=== PATIENT | male | born 1980 | race Caucasian/White ===

== ENCOUNTER 2020-12-28 08:30 | Outpatient (CLI) | payer OTHER, SELFPAY ==
--- NOTE | ~2020-12-28 | CT_ITS ---
EXAMINATION: CT abdomen pelvis w con DATE: 12/28/2020 09:08 INDICATION: Abdominal pain TECHNIQUE: Computed tomography (CT) of the abdomen and pelvis was performed with 100 cc Omnipaque 350 intravenous contrast. The dose-length product was 1572.69 mGy-cm. Automated exposure control and ite rative reconstruction technique were employed. COMPARISON: No prior studies for comparison. FINDINGS: There is lingular atelectasis. Heart size normal. No significant pleural or pericardial eff usion. There is fatty infiltration of the liver. The spleen, pancreas, adrenal glands and kidneys are unremarkable. Colonic diverticulosis without evidence for diverticulitis. Normal appendix. Nonobstru ctive bowel gas pattern. No abnormal pelvic masses or fluid collections. Few colonic diverticula with out evidence for acute diverticulitis. No free air or free fluid. There is moderate lower lumbar spon dylosis. IMPRESSION: 1. No acute abdominal abnormality. Reviewed, dictated and finalized at location B.
== END 2020-12-28 08:31 | disposition home or self-care (01) ==
PROVIDERS: PCP Family Medicine; Visit Provider Physician Assistant
DX: R10.9 Unspecified abdominal pain (principal)
CPT/HCPCS: 74177; Q9967

== ENCOUNTER 2023-02-11 15:18 | Outpatient (CLI) | payer OTHER, SELFPAY ==
--- NOTE | ~2023-02-11 | XR_ITS ---
EXAMINATION: XR chest 2V 02/11/2023 15:47 INDICATION: Chest pain for 2 weeks. Hypertension. PROCEDURE: 2 view chest COMPARISON: 07/11/2017 FINDINGS: The lungs are clear. The cardiomediastinal silhouette is within normal limits. There are no pleural effusions. There is no pneumothorax suspected. IMPRESSION: 1: NO ACUTE CARDIOPULMONARY DISEASE. Reviewed, dictated and finalized at location A.
--- NOTE | 2023-02-11 15:45 | ECG_ITS ---
Measurements Intervals [place] Rate: 75 P: 23 ID: 139 QRS: 44 QRSD: 105 T: 4 QT: 372 QTc: 418 Interpretive Statements SINUS RHYTHM WITH SINUS ARRHYTHMIA INCOMPLETE RIGHT BUNDLE BRANCH BLOCK BORDERLINE ECG NO PREVIOUS ECG AVAILABLE FOR COMPARISON Electronically Signed On 02-11-2023 20:03:32 CDT by Juan David Heard D.O.
== END 2023-02-11 15:19 | disposition home or self-care (01) ==
PROVIDERS: PCP Family Medicine; Visit Provider Physician Assistant Medical
DX: R07.89 Other chest pain (principal); I45.10 Unspecified right bundle-branch block
CPT/HCPCS: 71046; 93005

== ENCOUNTER 2024-06-09 10:12 | Emergency (ER) | payer OTHER, SELFPAY ==
[2024-06-09] VITALS (22 sets, daily range): BP systolic 108–143; BP diastolic 79–95; PULSE 83–127; RESP 18; TEMP 36.6; O2SAT 98–100
--- NOTE | ~2024-06-09 | XR_ITS ---
EXAMINATION: XR chest 2V DATE: 06/09/2024 10:59 INDICATION: Tachycardia. Abdominal pain. Nausea. TECHNIQUE: PA and lateral views of the chest were obtained. COMPARISON: Chest radiograph dated 02/11/2023 FINDINGS: The lungs remain clear with no focal airspace opacities, pulmonary edema, pleural effusion or pneumot horax. The cardiomediastinal silhouette is normal. Mild to moderate thoracic spondylosis. Postoperati ve change noted left upper quadrant. IMPRESSION: 1. No acute cardiopulmonary disease. Reviewed, dictated and finalized at location B. R BASTER
--- NOTE | ~2024-06-09 | CT_ITS ---
CLINICAL INDICATION: Tachycardia, nausea vomiting and diarrhea, and abdominal pain COMPARISON: 12/28/2020. TECHNIQUE: An enhanced CT of the chest, abdomen and pelvis was performed utilizing multislice spiral technique reconstructed at 2.5 mm slice thickness. Coronal and sagittal reconstructions were perform ed. This CT examination was performed utilizing dose reduction techniques. DLP: 1425 mGy-cm FINDINGS/OBSERVATIONS: Lung: The lungs are clear. The heart is of normal size, without pericardial effusion. Mediastinum: No pathologically enlarged or morphologically suspicious lymph nodes are identified within the spinal , bilateral axilla, within the soft tissues of the anterior chest wall. Soft tissues of the chest: Unremarkable. Bones of the chest: No acute fracture. No lytic or blastic lesions are identified. Liver: The liver enhances homogeneously and is not enlarged measuring 18 cm in longitudinal dimension. Gallbladder and biliary system: The gallbladder is distended, but otherwise unremarkable. Pancreas: The pancreas enhances homogeneously, without ductal dilatation. Spleen: The spleen enhances homogeneously, and is borderline enlarged measuring 13 cm in longitudinal dimensi on. Kidneys: The bilateral kidneys enhance symmetrically without hydronephrosis or renal calculi. Adrenal glands: Unremarkable. Gastrointestinal tract: Small hiatal hernia is present. Mural thickening with multiple diverticula in the rectosigmoid colon and surrounding inflammatory kori nge, findings consistent with acute/early diverticulitis which clinical correlation is needed. No drainable fluid collection. No gross free air. Appendix: The air-filled appendix is of normal caliber (axial series, images 174 through 193). Vasculature: No calcified atherosclerotic disease is present. No aneurysmal dilatation. Lymph nodes: Scattered nonpathologically enlarged lymph nodes within the root of the mesentery and deep in the pel vis. Pelvic structures: The bladder is minimally distended and otherwise unremarkable. Body wall and musculoskeletal: Small fat-containing umbilical hernia. Degenerative disease within the lower lumbar spine, with osteophyte formation, disc space narrowing, endplate changes and vacuum phenomena. This is most prominent at the levels of L4/L5 and L5/S1. IMPRESSION: Rectosigmoid diverticulitis without a drainable fluid collection or gross perforation. Reviewed, dictated and finalized at location A. STRIAL MANUFACTURING TECHNICIAN IMPRESSION: Rectosigmoid diverticulitis without a drainable fluid collection or gross perfo ration.
--- NOTE | 2024-06-09 10:36 | ECG_ITS ---
Test Date: 2024-06-09 10:48:12 Measurements Intervals [place] Rate: 108 P: 20 VT: 148 QRS: 93 QRSD: 91 T: 11 QT: 318 QTc: 428 Interpretive Statements SINUS TACHYCARDIA INCOMPLETE RIGHT BUNDLE BRANCH BLOCK BORDERLINE ST-T WAVE ABNORMALITY- INFERIOR LEADS BASELINE ARTIFACT- I, III, AVL ABNORMAL ECG No previous ECG available for comparison Electronically Signed On 06-09-2024 11:33:11 VENEER TAPING MACHINE OFFBEARER by Juan David Heard D.O.
--- NOTE | 2024-06-09 10:36 | ED_ITS ---
HPI - Abdominal Pain General Chief Complaint: Abdominal Pain Stated Complaint: GI sx since 06/04 Time Seen by Provider: 06/09/24 10:26 History of Present Illness HPI narrative: Patient is a 44-year-old male who presents to the ER with complaints of abdominal pain that has been going on for the past 5 days. He reports he takes Zepbound 1.5 for weight loss. Patient reports he recently increased his dose but has been on this medication for over 6 months. He reports on Friday he started experiencing bloating, diarrhea, and cramping. Patient reports a history anxiety and hypertension. He reports he takes his antihypertensive medication every day. Patient denies recent fevers, shortness of breath, or constipation. Related Data Allergies Allergy/AdvReac Type Severity Reaction Status Date / Time No Known Allergies Allergy Verified 02/23/24 16:34 Review of Systems Review of Systems: All systems reviewed & are unremarkable except as noted in HPI and below PMFSH Past Medical History Medical History Anxiety Gastroesophageal reflux disease Hip instability Hip pain, left Left ear impacted cerumen Family History Family History Grandparent Hypertension Mother Patient's mother is in good health Father Patient's father is in good health Sibling Patient's sister is in good health Patient's brother is in good health Social History Social History Smoking status: Never smoker Second hand tobacco smoke exposure: No Alcohol intake: current Drinks per week: 12 Substance use: never Substance use type: does not use Lack of Transportation: No Lack of Food: Never True Current Housing: I Have Housing Concerned About Future Housing: No Difficulty Paying Gas/Electric Bills: No Difficulty Paying for Meds: No Currently Unemployed: No Education: Bachelor's Degree Difficulty w/ Childcare or Family Care: No Living arrangements: with family Occupation/Education: occupation Gender identity (if verbalized by the patient): Male Sexual Orientation (if Verbalized by the Patient): Straight or Heterosexual Spiritual care concerns: No Agree to blood products: Yes Exam Narrative: GENERAL: Well appearing, well-nourished, non-toxic, in no acute distress. HEAD: Normocephalic, atraumatic. NECK: Supple. No adenopathy, no masses. RESPIRATORY: Airway patent, respirations nonlabored. Clear to auscultation bilaterally, no rales, rhonchi, wheezing. CARDIOVASCULAR: Tachycardia and rhythm without murmurs, rubs, or gallops. Peripheral pulses 2+ and equal bilaterally. ABDOMINAL: Soft, nontender, distended, no hepatosplenomegaly. Normoactive BS. MUSCULOSKELETAL: Moves all extremities. Strength/ROM intact without gross deformities. SKIN: Warm, dry, normal color. No rashes. NEURO: A&O X3. Speech clear. Cranial nerves II-XII grossly intact. No ataxic movements. PSYCHIATRIC: Appropriate mood and affect. Normal interaction. Course Vital Signs Vital signs: Vital Signs Temperature 36.6 C 06/09/24 10:16 Pulse Rate 127 H 06/09/24 10:16 Respiratory Rate 18 06/09/24 10:16 Blood Pressure 130/88 06/09/24 10:16 Pulse Oximetry 99 06/09/24 10:16 Oxygen Delivery Room Air 06/09/24 10:16 Temperature 36.6 C 06/09/24 10:16 Pulse Rate 83 06/09/24 14:03 Respiratory Rate 18 06/09/24 14:03 Blood Pressure 143/79 H 06/09/24 14:03 Pulse Oximetry 100 06/09/24 14:03 Oxygen Delivery Room Air 06/09/24 10:16 MDM - Abdominal Pain MDM Narrative Medical decision making narrative: Patient is a 44-year-old male who presents to the ER with complaints of abdominal pain that has been going on for the past 5 days. He reports he takes Zepbound 1.5 for weight loss. Patient reports he recently increased his dose but has been on this medication for over 6 months. He reports on Friday he started experiencing bloating, diarrhea, and cramping. Patient reports a hist ory anxiety and hypertension. He reports he takes his antihypertensive medication every day. Patient denies recent fevers, shortness of breath, or constipation. Labs Ordered: CBC, CMP, PTT, INR, troponin, lactic acid, urinalysis Imaging Ordered: EKG, chest x-ray Results: CT scan showed Small hiatal hernia is present. Mural thickening with multiple diverticula in the rectosigmoid colon and surrounding inflammatory change, findings consistent with acute/early diverticulitis which clinical correlation is needed. No drainable fluid collection. No gross free air. CBC indicates a WBC of 11.2. CMP and lipase are unremarkable. Urinalysis indicates 2+ ketones. After 2L NS IV bolus pt's heart rate has returned to the 80s with NSR. Diagnosis: Diverticulitis Consults: Pt should follow-up with his PCP in one week. Pt should also follow-up with gastroenterology after infection has resolved. Disposition/Plan: Pt does not meet criteria for hospital admission, but will be given first doses of IV antibiotics in the ER. Pt will be started on oral antibiotics outpatient. He endorses very little discomfort other than bloating and cramping. Pt should follow-up with his PCP next week and was advised to maintain a liquid diet for one week per Up-to-date recommendations. Pt and his verbalize understanding and are in agreement with plan. Differential Diagnosis Differential diagnosis: Likely abdominal pain, acute appendicitis, constipation, diverticulitis, gastroenteritis, pancreatitis and small bowel obstruction Lab Data Attestation: I reviewed the patient's lab results. 06/09/24 10:29 06/09/24 10:29 Labs: Lab Results 06/09/24 06/09/24 Range/Units 10:29 11:21 WBC 11.2 H (4.5-10.0) K/mm3 RBC 5.34 (4.6-6.20) M/mm3 Hgb 16.2 (14.0-18.0) g/dL Hct 46.1 (42.0-52.0) % MCV 86.3 (80-100) fl MCH 30.3 (26-34) pg MCHC 35.1 (32-36) g/dl RDW 12.6 (11.5-14.5) % Plt Count 290 (150-375) k/mm3 MPV 9.5 (7.4-10.4) fl Immature Gran % (Auto) 0.2 (0-0.5) % Neut % (Auto) 69.7 (45.5-73.1) % Lymph % (Auto) 17.6 L (18.3-44.2) % [place] % (Auto) 6.9 (2.6-8.5) % Eos % (Auto) 5.2 H (0-4.4) % Baso % (Auto) 0.4 (0.2-1.2) % Lymph # (Auto) 1.98 (0.9-3.2) K/mm3 [place] # (Auto) 0.8 H (0.1-0.6) K/mm3 Eos # (Auto) 0.6 H (0-0.3) K/mm3 Baso # (Auto) 0.0 (0.0-0.1) K/mm3 Abs Immat Gran (auto) 0.02 (0.00-0.031) K/mm3 Absolute Neuts (auto) 7.8 H (1.3-6.7) K/mm3 Absolute Nucleated RBC 0.000 (0.0-0.012) K/mm3 Nucleated RBC % 0.0 (0.0-0.2) % PT 14.5 (11.1-14.7) Seconds INR 1.1 APTT 33.6 (22.3-36.8) Seconds Sodium 138 (137-145) mmol/L Potassium 4.0 (3.4-5.0) mmol/L Chloride 105 (98-107) mmol/L Carbon Dioxide 25 (22-30) mmol/L Anion Gap 8 (4-12) mmol/L BUN 16 (9-20) mg/dL Creatinine 0.90 (0.7-1.3) mg/dL Estim Creat Clear Calc 107 ml/min Estimated GFR > 60 (59 - ) Glucose 105 (65-110) mg/dL Lactic Acid Pending Calcium 8.7 (8.4-10.2) mg/dL Total Bilirubin 0.8 (0.2-1.3) mg/dL AST 22 (17-59) U/L ALT 21 (6-50) U/L Alkaline Phosphatase 122 (38-126) U/L Troponin I < 0.012 (0.000-0.034) ng/mL Total Protein 8.0 (6.3-8.2) g/dL Albumin 4.5 (3.5-5.1) g/dL Lipase 61 (23-300) U/L Urine Color Yellow (Yellow) Urine Appearance Clear (Clear) Urine pH 5.5 (5.0-9.0) Ur Specific [place] 1.027 (1.001-1.035) Urine Protein Trace (Negative) mg/dL Urine Glucose (UA) Negative (Negative) mg/dL Urine Ketones 2+ H (Negative) mg/dL Ur Blood (Man) Negative (Negative) Urine Nitrate Negative (Negative) Urine Bilirubin Negative (Negative) Urine Urobilinogen 1.0 (<2.0) mg/dL Add Ur Microanalysis Reviewed Leukocyte Esterase Rfl Negative (Negative) ISELA/UL Urine RBC 0-2 (0-2) /hpf Urine WBC 0-5 (0-3) /hpf Ur Squamous Epith Cells None seen (Few) /hpf Urine Bacteria None seen /hpf Urine Casts 6-10 Influenza A (RT-PCR) Negative (Negative) Influenza B (RT-PCR) Negative (Negative) RSV (RT-PCR) Negative (Negative) SARS-CoV-2 RNA (RT-PCR) Negative (Negative) Imaging Data Attestation: I personally reviewed and interpreted this imaging study as follows: Radiologist's impression: ITS Impressions Chest X-Ray 06/09/24 11:04 IMPRESSION: 1. No acute cardiopulmonary disease. Chest/Abdomen/Pelvis CT 06/09/24 12:27 IMPRESSION: Rectosigmoid diverticulitis without a drainable fluid collection or gross perforation. Discharge Plan Discharge Clinical Impression: Diverticulitis Patient Disposition: Home, Self-Care Condition: Stable Instructions: Antibiotic Form, Diverticulitis (ED), Abdominal Pain (ED) Additional Instructions: Please take all medications as prescribed. Follow-up with your primary care provider in one week or less. Return to the ER with any worsening symptoms, including severe abdominal pain. Prescriptions: New amoxicillin-pot clavulanate 875-125 mg tablet 1 tablet PO Q12H Qty: 20 0RF No Action pantoprazole [Protonix] 40 mg tablet,delayed release (DR/EC) 40 mg PO QAM Qty: 30 11RF buspirone 5 mg tablet See Rx Instructions .ROUTE .COMPLEX Qty: 60 3RF Dose Instruction: TAKE 1 TABLET BY MOUTH TWICE DAILY Rx Instructions: TAKE 1 TABLET BY MOUTH TWICE DAILY triamcinolone acetonide 0.1 % cream 1 applic TOPICAL TID Qty: 30 0RF irbesartan 75 mg tablet See Rx Instructions .ROUTE .COMPLEX Qty: 90 3RF Dose Instruction: TAKE 1 TABLET DAILY Rx Instructions: TAKE 1 TABLET DAILY metoprolol succinate 50 mg tablet extended release 24 hr See Rx Instructions .ROUTE .COMPLEX Qty: 90 3RF Dose Instruction: TAKE 1 TABLET DAILY Rx Instructions: TAKE 1 TABLET DAILY Zepbound 15 mg/0.5 mL pen injector 15 mg subcut WEEKLY Qty: 2 0RF Follow-up/Referrals: Bibiana Coello MD [Primary Care Provider] -
[2024-06-09 10:45] LABS: Basophils Percent Auto 0.4 % (0.2-1.2); Eosinophils Absolute Auto 0.6 K/mm3 (0-0.3); Eosinophils Percent Auto 5.2 % (0-4.4); Hematocrit 46.1 % (42.0-52.0); Hemoglobin 16.2 g/dL (14.0-18.0); Immature Granulocyte Absolute 0.02 K/mm3 (0.00-0.031); Immature Granulocyte Percent A 0.2 % (0-0.5); Lymphocytes Absolute Auto 1.98 K/mm3 (0.9-3.2); Lymphocytes Percent Auto 17.6 % (18.3-44.2); Mean Corpuscular HGB Conc 35.1 g/dl (32-36); Mean Corpuscular Hemoglobin 30.3 pg (26-34); Mean Corpuscular Volume 86.3 fl (80-100); Mean Platelet Volume 9.5 fl (7.4-10.4); Monocytes Absolute Auto 0.8 K/mm3 (0.1-0.6); Monocytes Percent Auto 6.9 % (2.6-8.5); Neutrophils Absolute Auto 7.8 K/mm3 (1.3-6.7); Neutrophils Percent Auto 69.7 % (45.5-73.1); Platelet Count Result 290 k/mm3 (150-375); Red Blood Count 5.34 M/mm3 (4.6-6.20); Red Cell Distribution Width 12.6 % (11.5-14.5); White Blood Count 11.2 K/mm3 (4.5-10.0)
[2024-06-09 10:53] LABS: Alanine Aminotransferase 21 U/L (6-50); Albumin Level 4.5 g/dL (3.5-5.1); Alkaline Phosphatase 122 U/L (38-126); Anion Gap 8 mmol/L (4-12); Aspartate Amino Transferase 22 U/L (17-59); Bilirubin,Total 0.8 mg/dL (0.2-1.3); Blood Urea Nitrogen 16 mg/dL (9-20); Calcium 8.7 mg/dL (8.4-10.2); Carbon Dioxide 25 mmol/L (22-30); Chloride 105 mmol/L (98-107); Estimated CRCL calculation 107 ml/min; Estimated Glomerular Filt Rate > 60; Glucose 105 mg/dL (65-110); Lipase 61 U/L (23-300); Sodium 138 mmol/L (137-145)
[2024-06-09] MEDS: FAMOTIDINE 20 MG/2 ML VIAL IV PUSH (11:00)
[2024-06-09] MEDS: SODIUM CHLORIDE 0.9% IV 1,000 ML 999 ML IV CONT ×2 (11:00)
[2024-06-09] MEDS: PANTOPRAZOLE SODIUM IV 40 MG VIAL IV PUSH (11:00)
[2024-06-09 11:08] LABS: INR 1.1; Prothrombin Time 14.5 Seconds (11.1-14.7)
[2024-06-09 11:09] LABS: Partial Thromboplastin Time 33.6 Seconds (22.3-36.8)
[2024-06-09 11:10] LABS: Add Urine Microscopic? YES; Appearance Urine Clear (Clear); Bacteria Urine None Seen /hpf; Bilirubin Urine Negative (Negative); Blood Urine Negative (Negative); Color Urine Yellow (Yellow); Glucose Urine UA Negative (Negative); Ketones Urine 2+ mg/dL (Negative); Leukocyte Esterase Ur Negative LEU/UL (Negative); Need Manual Microscopic Reviewed; Nitrate Urine Negative (Negative); Protein Urine Trace mg/dL (Negative); RBC Urine 0-2 /hpf (0-2); Specific Grav Ur 1.027 (1.001-1.035); Squamous Epithelial Cell Urine None Seen /hpf (Few); WBC Urine 0-5 /hpf (0-3); pH Urine 5.5 (5.0-9.0)
[2024-06-09 11:22] LABS: Troponin I < 0.012 ng/mL (0.000-0.034)
[2024-06-09 12:09] LABS: Influenza A QL RT-PCR Negative (Negative); Influenza B QL RT-PCR Negative (Negative); RSV RNA, RT-PCR Negative (Negative); SARS-CoV-2 RNA PCR Negative (Negative)
[2024-06-09] MEDS: metroNIDAZOLE 500 MG/ISO 100ML 500 MG/100 ML BAG 100 MG IVPB (14:26)
[2024-06-09 14:36] LABS: Lactic Acid Reflex < 0.5 mmol/L (0.7-2.0)
== END 2024-06-09 15:38 | disposition home or self-care (01) ==
PROVIDERS: Emergency Medicine; Emergency Provider Registered Nurse; PCP Family Medicine
DX: K57.32 Diverticulitis of large intestine without perforation or abscess without bleeding (principal); Z20.822 Contact with and (suspected) exposure to COVID-19; F41.9 Anxiety disorder, unspecified; K21.9 Gastro-esophageal reflux disease without esophagitis; R94.31 Abnormal electrocardiogram [ECG] [EKG]
CPT/HCPCS: 36415; 71046; 71260; 74177; 80053; 81001; 83605; 83690; 84484; 85025; 85610; 85730; 87040; 87637; 93005; 96361; 96365; 96367; 96375; 99284; J0696; J1836; J2470; J7030; Q9967

== ENCOUNTER 2025-04-11 10:35 | Day surgery (SDC) | payer OTHER, SELFPAY ==
[2025-03-14 15:33] VITALS: BMI 29.1
[2025-03-31 09:41] VITALS: BMI 27.7
[2025-04-11 11:05] VITALS: BP 119/84; PULSE 86; RESP 16; TEMP 36.5; O2SAT 100
[2025-04-11] MEDS: LACTATED RINGERS 1,000 ML 150 ML IV CONT (11:08)
--- OUTSIDE RECORDS SUMMARY | 2025-04-11 12:05 | XMS_ITS | Clinical Summary ---
Author Organization [facility] Address [address] [place] [id number] Care Team Providers Care Marketing Representative Name Role Phone Unavailable Primary Care Provider Unavailabl e Social History Tobacco Use Types Packs/Day Years Used Date Smoking Tobacco: Never Assessed Sex and Gender Information Value Date Recorded Sex Assigned at Not on file Legal Sex Male 7:54 PM CDT Gender Identity Not on file Sexual Orientation Not on file Plan of Treatment Health Maintenance Due Date Last Done Comments Colorectal Cancer Screening Colonoscopy (10 Years) 1980 Annual Physical 02/28/1983 Hepatitis C 02/28/1998 DTaP, Tdap and Td Vaccines ( 1 - Tdap) 02/28/1999 Hepatitis B Vaccines (1 of 3 - 19+ 3-dose series) 02/28/1999 HPV Vaccines (1 - 3-dose SCD M series) 02/28/2007 COVID-19 Vaccine (2023-2 5 season) 2025 Meningococcal B Vaccine Aged Out No l onger eligible based on patient's age to complete this topic Meningococcal Vaccine Aged Out No bruno maria luz eligible based on patient's age to complete this topic Pneumococcal Vaccine: Pediat rics (0 to 5 Years) and At-Risk Patients (6 to 49 Years) Aged Out No longer eligible b ased on patient's age to complete this topic RSV Immunizations Under 20 Months Aged Out No longer eligible based on patient's age to complete this topic
--- OUTSIDE RECORDS SUMMARY | 2025-04-11 12:05 | XMS_ITS | Clinical Summary ---
Author Organization [facility] Address [address] [place] [address] Care Team Providers Care Machine Maintenance Technician Name Role Phone Bibiana Coello MD Primary Care Provider [phone] Source Comments [facility],non-owned Affiliates and Associated Physician Practices is amultiple site organization consisting of ambulatory clinics and hospital sitesin [place], [place], [place] and [place]. This disclosure is being madepursuant to the Care Everywhere program and may not contain all information available regarding this patient. Last updated 18.[facility] Allergies No known active allergies Medications * Be aware that medications may not be up to date on this document. Alwaysverify current medications with the patient. 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 Gender Identity Not on file Sexual Orientation Not on file Last Filed Vital Signs Vital Sign Reading Time Taken Comments Blood Pressure 119/75 11/07/2016 6:20 PM CDT Pulse 78 11/07/2016 6:20 PM CDT Temperature 36.6 C (97.9 F) 11/07/2016 6:20 PM CDT Respiratory Rate 16 11/07/2016 6:20 PM CDT Oxygen Saturation - - Inhaled Oxygen Concentration - - Weight 113.4 kg (250 lb) 11/07/2016 6:20 PM CDT Height 188 cm (6' 2) 11/07/2016 6:20 PM CDT Body Mass Index 32.1 11/07/2016 6:20 PM CDT Plan of Treatment Health Maintenance Due Date Last Done Comments COLOGUARD (AGES 45-75) - COL ON CA SCREENING 1980 COLON MONITORING 1980 COLONOSCOPY - COLON CA SCREENING 1980 CT COLONOGRAPHY - COLON CA SCREENING 1980 Colorectal Cancer Screening 1980 FIT - COLON CA SCREENING 1980 FLEX SIG - COLON CA SCREENING 1980 LIPID TESTING 1980 HIV SCREENING 02/28/1995 HEPATITIS C SCREENING 02/24/1998 DTAP/TDAP/TD VACCINES (1 - Tdap) 02/28/1999 HEPATITIS B VACCINE (1 of 3 - 19+ 3-dose series) 02/28/1999 HPV VACCINE (1 - 3-dose SCDM series) 02/28/2007 DEPRESSION SCREENING 07/21/2024 COVID-19 VACCINE (1 - 2023-2 5 season) 2025 INFLUENZA VACCINE (#1) 2025 ZOSTER VACCINE (1 of 2) 02/28/2030 HIB VACCINE Aged Out No longer eligi ble based on patient's age to complete this topic MENINGOCOCCAL (Group B) VACC INE SHARED DECISION-MAKING Aged Out No longer eligibl e based on patient's age to complete this topic MENINGOCOCCAL GROUPS A/C/Y/W VACCINE Aged Out No longer eligible b ased on patient's age to complete this topic PNEUMOCOCCAL VACCINE Aged Out No long er eligible based on patient's age to complete this topic Insurance FELICIA Care Teams Machine Maintenance Technician Relationship Specialty Start Date End Date Bibiana Coello MD [address] [place] [address] PCP - General Family Medicine 11/07/16
--- OUTSIDE RECORDS SUMMARY | 2025-04-11 12:05 | XMS_ITS | Clinical Summary ---
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 Gender Identity Not on file Sexual Orientation Not on file Plan of Treatment Health Maintenance Due Date Last Done Comments Hepatitis C Virus (HCV) Screening 1980 TdaP Immunization 1980 Hepatitis B Immunization (1 of 3 - 19+ 3-dose series) 02/28/1999 Human Papillomavirus (HPV) Immunization (1 - 3-dose SCDM series) 02/28/2007 Cologuard 02/28/2025 Colonoscopy 02/28/2025 Colorectal Cancer Screening 02/28/2025 Immunochemical Fecal Occult Blood 02/28/2025 Influenza Immunization (#1) 2025 SARS-COV-2 Immunization ( season) 2025 06/21/2021 Respiratory Syncytial Virus (RSV) Immunization (Adult) (1 - 1-dose 75+ series) 02/28/2055 Meningococcal Immunization (ACWY) Aged Out No longer eligible based on patient's age to complete this topic Pneumococcal Immunization Combined Aged Out No longer eligible based on patient's age to complete this topic Rotavirus Immunization Aged Out No lo nger eligible based on patient's age to complete this topic
--- NOTE | 2025-04-11 12:13 | P.PNAN_ITS ---
Anes - Initial Pre Proc Eval Procedure: Operation Date: 04/11/25 11:00 Proposed Procedures p Screening Colonoscopy - Giovanni Haney MD Date/Time: 04/11/25 12:13 Surgeon: Giovanni Haney MD Pre Op Diagnosis: Screening Patient Data Age: 45 Gender: M Height: 1.88 m Weight: 98 kg Last Vital Signs Temp 97.7 F 04/11/25 11:05 Pulse 86 04/11/25 11:05 Resp 16 04/11/25 11:05 BP 119/84 04/11/25 11:05 Pulse Ox 100 04/11/25 11:05 O2 Del Method Room Air 04/11/25 11:05 Allergies Allergy/AdvReac Type Severity Reaction Status Date / Time No Known Allergies Allergy Verified 04/11/25 11:04 Home Medications ?Medication ?Instructions ?Recorded ?Confirmed ?Type triamcinolone acetonide 0.1 % 1 applic topical TID #30 grams 10/21/23 04/11/25 Rx topical cream pantoprazole 40 mg tablet,delayed 40 mg PO QAM #30 tab s 08/12/24 04/11/25 Rx release (Protonix) Held on 03/03/25. Instructions: .Provider Order irbesartan 75 mg tablet See Rx Instructions .Route 0 01/31/25 04/11/25 Rx .COMPLEX #90 tabs sildenafil 25 mg tablet (Viagra) 25 mg PO DAILY PRN se xual activity 03/03/25 04/11/25 Rx #7 tabs tirzepatide (weight loss) 10 10 mg (0.5 mL) subcut WEE KLY #2 mL 03/16/25 04/11/25 Rx mg/0.5 mL subcutaneous pen injector (Zepbound) metoprolol succinate 50 mg See Rx Instructions .Route 03/28/25 04/11/25 Rx tablet,extended release 24 hr .COMPLEX #90 tabs Patient hx anesthesia problems: none Family hx anesthesia problems: none Results Review: All pre-operative results and documents have been reviewed as part of the pre- operative evaluation. [facility] Past Medical History Medical History (Updated 03/03/25 @ 12:54 by Bree Queen PA-C) Obstructive sleep apnea Hip pain, left Hip instability Left ear impacted cerumen Gastroesophageal reflux disease Anxiety Family History Family History Grandparent Hypertension Mother Patient's mother is in good health Father Patient's father is in good health Sibling Patient's sister is in good health Patient's brother is in good health Social History Social History Smoking status: Never smoker Second hand tobacco smoke exposure: No Alcohol intake: current Drinks per week: 7 Substance use: current Substance use type: marijuana Other substance usage details: gummies every other week Lack of Transportation: No Lack of Food: Never True Current Housing: I Have Housing Concerned About Future Housing: No Difficulty Paying Gas/Electric Bills: No Difficulty Paying for Meds: No Currently Unemployed: No Education: Bachelor's Degree Difficulty w/ Childcare or Family Care: No Living arrangements: with family Additional living arrangements comments: and kids Occupation/Education: occupation Gender identity (if verbalized by the patient): Male Sexual Orientation (if Verbalized by the Patient): Straight or Heterosexual Spiritual care concerns: No Agree to blood products: Yes Anes - Eval Final PreProcedure Day of Procedure 04/11/25 12:13 Heart: regular rate and rhythm Lungs: clear to auscultation Airway: Mallampati scale class II Neurological: alert and oriented Last oral intake: >/= 8 hours ASA classification: II Anesthetic plan: proceed Anesthesia type and monitoring: monitored anesthesia care Results Review: All pre-operative results and documents have been reviewed as part of the pre- operative evaluation. Informed Consent: The patient's anesthetic plan and its attendant risks and benefits were discussed with the patient/family/POA. Questions were solicited and answers provided to the satisfaction of the patient/family/POA.
--- NOTE | 2025-04-11 12:13 | PM.IMHP ---
H&P: HPI History of Present Illness Date/Time: 04/11/25 12:13 Chief Complaint: Screening colonoscopy Narrative: This is the patient's first colonoscopy. There are no GI symptoms and there is no family history of colorectal cancer. Review of Systems Review of Systems: All systems reviewed & are unremarkable except as noted in HPI and below PMFSH Past Medical History Medical History (Updated 04/11/25 @ 12:14 by Giovanni Haney MD) Obstructive sleep apnea Hip pain, left Hip instability Left ear impacted cerumen Gastroesophageal reflux disease Anxiety Family History Family History Grandparent Hypertension Mother Patient's mother is in good health Father Patient's father is in good health Sibling Patient's sister is in good health Patient's brother is in good health Social History Social History Smoking status: Never smoker Second hand tobacco smoke exposure: No Alcohol intake: current Drinks per week: 7 Substance use: current Substance use type: marijuana Other substance usage details: gummies every other week Lack of Transportation: No Lack of Food: Never True Current Housing: I Have Housing Concerned About Future Housing: No Difficulty Paying Gas/Electric Bills: No Difficulty Paying for Meds: No Currently Unemployed: No Education: Bachelor's Degree Difficulty w/ Childcare or Family Care: No Living arrangements: with family Additional living arrangements comments: and kids Occupation/Education: occupation Gender identity (if verbalized by the patient): Male Sexual Orientation (if Verbalized by the Patient): Straight or Heterosexual Spiritual care concerns: No Agree to blood products: Yes Meds Home Medications and Allergies Home Medications ?Medication ?Instructions ?Recorded ?Confirmed ?Type triamcinolone acetonide 0.1 % 1 applic topical TID #30 grams 10/21/23 04/11/25 Rx topical cream pantoprazole 40 mg tablet,delayed 40 mg PO QAM #30 tabs 08/12/24 04/11/25 Rx release (Protonix) Held on 03/03/25. Instructions: .Provider Order irbesartan 75 mg tablet See Rx Instructions .Route 01/31/25 04/11/25 Rx .COMPLEX #90 tabs sildenafil 25 mg tablet (Viagra) 25 mg PO DAILY PRN sexual activity 03/03/25 04/11/25 Rx #7 tabs tirzepatide (weight loss) 10 10 mg (0.5 mL) subcut WEEKLY #2 mL 03/16/25 04/11/25 Rx mg/0.5 mL subcutaneous pen injector (Zepbound) metoprolol succinate 50 mg See Rx Instructions .Route 03/28/25 04/11/25 Rx tablet,extended release 24 hr .COMPLEX #90 tabs Allergies Allergy/AdvReac Type Severity Reaction Status Date / Time No Known Allergies Allergy Verified 04/11/25 11:04 Vital Signs Vital Signs - 24 hr 04/11/25 11:05 Temperature 97.7 F Pulse Rate 86 Respiratory Rate 16 Blood Pressure 119/84 Pulse Oximetry 100 Oxygen Delivery Room Air Exam Const: General: cooperative and healthy appearing Resp: Effort & Inspection: normal respiratory effort and able to speak in complete sentences Auscultation: clear to auscultation bilaterally Cardio: Rate: regular rate Rhythm: regular rhythm GI: Inspection: normal to inspection GI Palp: No No hepatosplenomegaly present Auscultation: normal bowel sounds Rectal Exam: deferred Skin: General skin exam: normal color Psych: Appearance: grossly normal Mental Status: mental status grossly normal Assessment and Plan Assessment and plan (1) Encounter for screening colonoscopy: Code(s): Z12.11 - Encounter for screening for malignant neoplasm of colon Status: Acute Assessment and Plan: The patient is deemed a good candidate for the procedure. Consent signed. Will proceed.
--- NOTE | 2025-04-11 13:06 | WPDANESPN ---
Anes - Prog Note Post-Op Date/Time: 04/11/25 13:06 Vital Signs: Last Vital Signs Temp 97.7 F 04/11/25 11:05 Pulse 86 04/11/25 11:05 Resp 16 04/11/25 11:05 BP 119/84 04/11/25 11:05 Pulse Ox 100 04/11/25 11:05 O2 Del Method Room Air 04/11/25 11:05 Pain Score (VAS): no Patient Feedback: Patient satisfied with anesthetic care.
[2025-04-11 13:15] VITALS: BP 111/84; PULSE 80; RESP 16; O2SAT 100
[2025-04-11 13:25] VITALS: BP 119/86; PULSE 76; RESP 16; O2SAT 100
[2025-04-11 13:35] VITALS: BP 114/80; PULSE 69; RESP 16; O2SAT 100
== END 2025-04-11 13:43 | disposition home or self-care (01) ==
PROVIDERS: PCP Family Medicine; Referring Provider Student in an Organized Health Care Education/Training Program; Visit Provider Internal Medicine Gastroenterology
PROC: 0DJD8ZZ Inspection of Lower Intestinal Tract, Via Natural or Artificial Opening Endoscopic (ICD-10-PCS; CPT 45378; principal; 2025-04-11 11:00)
DX: Z12.11 Encounter for screening for malignant neoplasm of colon (principal); K62.1 Rectal polyp; K57.30 Diverticulosis of large intestine without perforation or abscess without bleeding; K64.8 Other hemorrhoids
CPT/HCPCS: 45385

== ENCOUNTER 2025-04-11 13:57 | Outpatient (NON) | payer OTHER, SELFPAY ==
--- NOTE | 2025-04-12 | S_PTH ---
PATIENT: Umair Ocampo LOC: [facility] U#:[id number] AGE/SX: 45/M ROOM: RE04/11/[address]: Giovanni Haney MD : 1980 BED: DIS: 04/11/2025 SPEC #: [id number] RECD: 04/13/25 07:21 STATUS: SHARONDA REVenancio #: [id number] NAM: 04/12/25 00:[address]: Giovanni Haney DEPT: [facility] Surgical RECD BY: Ena Sequeira ENTERED: 04/13/25 07:22 SP TYPE: Surgical OTHR DR: Bibiana Coello, Tissues: A - Rectal Polyp Procedures: Hematoxylin and Eosin Stain Gross and Microscopic Level 4
--- OUTSIDE RECORDS SUMMARY | 2025-04-12 14:10 | XMS_ITS | Clinical Summary ---
Author Organization [facility] Address [address] [place] [id number] Care Team Providers Care Melting Supervisor Name Role Phone Unavailable Primary Care Provider [...]
--- OUTSIDE RECORDS SUMMARY | 2025-04-12 14:10 | XMS_ITS | Clinical Summary ---
Author Organization 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
--- OUTSIDE RECORDS SUMMARY | 2025-04-12 14:10 | XMS_ITS | Clinical Summary ---
Author Organization [facility] Address [address] [place] [address] Care Team Providers Care Trailhead Construction Worker Name Role Phone Bibiana Coello MD Primary Care Provider [phone] Source Comments [facility],non-owned Affiliates and Associated Physician Practices is amultiple site organization consisting of ambulatory clinics and hospital sitesin [place], [place], [place] and [place]. This disclosure is being madepursuant to the Care Everywhere program and may not contain all information available regarding this patient. 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
== END 2025-04-11 13:58 | disposition home or self-care (01) ==
LOC: ANHLAB 04-12 13:57
PROVIDERS: PCP Family Medicine; Visit Provider Internal Medicine Gastroenterology
DX: Z12.11 Encounter for screening for malignant neoplasm of colon (principal)
CPT/HCPCS: 88305